=== PATIENT | male | born 2005 ===

== ENCOUNTER 2024-05-11 14:35 | Emergency (ER) | payer SELFPAY ==
[2024-05-11 14:37] VITALS: BP 141/93; PULSE 62; RESP 18; TEMP 36.6; O2SAT 97; BMI 20.5
== END 2024-05-11 17:30 | disposition left against medical advice (07) ==
LOC: ED 17:59
DX: Z53.21 Procedure and treatment not carried out due to patient leaving prior to being seen by health care provider (principal)